=== PATIENT | female | born 1985 ===

== ENCOUNTER 2019-12-23 10:07 | Outpatient (CLI) | payer OTHER ==
--- NOTE | 2019-12-23 10:47 | XRAY Report ---
PROCEDURE: Chest 2 View X-Ray INDICATIONS: Molar ; preoperative evaluation and risk assessment TECHNIQUE: 2 view(s) of the chest. COMPARISON: None. FINDINGS: Surgical changes and devices: None. Lungs and pleura: No pleural effusions or pneumothorax. Lungs are clear. Mediastinum: Mediastinal contours are normal. Heart size is normal. Bones and chest wall: No suspicious bony abnormalities. Soft tissues appear unremarkable. IMPRESSION: No acute cardiopulmonary process demonstrated radiographically. Reviewed by: Chavo Patricio MD on 12/23/2019 10:45 AM PDT Approved by: Chavo Patricio MD on 12/23/2019 10:45 AM PDT Station ID: [id number]
[2019-12-23] MEDS ORDERED: GADOBUTROL 10 MMOL/10 ML VIAL ONE (11:46)
[2019-12-23] MEDS ORDERED: GADOBUTROL 10 MMOL/10 ML VIAL IVP ONE (12:36)
--- NOTE | 2019-12-23 15:34 | MRI Report ---
PROCEDURE: Pelvis W/WO INDICATIONS: MOLAR CONTRAST: IV CONTRAST: Gadavist ml: 8.5 TECHNIQUE: Coronal ultra fast SE, sagittal breath-hold T2 FSE; axial T1 FSE with and without fat saturation thro ugh the pelvis. Optional long- and short-axis uterine nonbreath-hold T2 FSE through the uterus. Sag ittal or axial dynamic ultra fast GE during administration of contrast. Post-contrast axial or coron al ultra fast GE / 2-D spoiled GE with fat saturation from the iliac crests to the symphysis. Option al diffusion weighted imaging and ADC may be performed. COMPARISON: None. FINDINGS: Image quality: Excellent. Uterus: The uterus is mildly enlarged. There is a heterogeneous mass distending the endometrial cavi ty demonstrating predominantly T1 hypointensity and T2 hyperintensity with numerous small internal cy stic spaces. There are a few areas of intrinsic T1-hyperintensity within the mass consistent with blo od product from foci of hemorrhage. Following contrast administration there is heterogeneous hypervas cular enhancement with multiple small internal nonenhancing cystic spaces. There is thickening of the junctional zone in the lower uterine segment. Adnexa: Both ovaries are normal in size. There is a thin-walled nonenhancing cyst within the left ov anam measuring up to 2.9 cm. Urinary system: Bladder wall is normal in thickness. Distal ureters are non distended. Urethra solomon ears normal in morphology. Nodes and vessels: No pelvic or inguinal adenopathy by size criteria. Iliac vessels are normal in s ize. Bowel and peritoneum: No pathologic free pelvic fluid. Inferior colon and small bowel loops are nor mal in caliber. Soft tissues: No inguinal hernias. No findings of pelvic floor incompetence in the absence of provo cation. Bones: Marrow demonstrates normal overall signal. There is mild periarticular edema and enhancement along the right sacroiliac joint compatible with a nonspecific sacroiliitis without evidence of ankyl osis. IMPRESSION: 1. Heterogeneous hypervascular mass with internal cystic spaces demonstrated within the uterine cavit y consistent with a complete hydatidiform mole. 2. Thin-walled simple appearing left ovarian cyst without evidence of ovarian enlargement likely repr esents a physiologic follicular cyst. No definite evidence of thecal lutein cysts. Reviewed by: Phillip Vergara MD on 12/23/2019 3:33 PM PDT Approved by: Phillip Vergara MD on 12/23/2019 3:33 PM PDT Station ID: [id number]
== END 2019-12-23 10:08 | disposition home or self-care (01) ==
LOC: DI 10:07
PROVIDERS: ATTEND Obstetrics & Gynecology
DX: Z01.818 Encounter for other preprocedural examination (principal); N85.9 Noninflammatory disorder of uterus, unspecified; N83.202 Unspecified ovarian cyst, left side
CPT/HCPCS: 71046; 72197; A9585; 36415; 80053

== ENCOUNTER 2019-12-24 06:23 | Day surgery (SDC) | payer OTHER ==
[~2019-12-24 06:23] MED LIST: LACTATED RINGERS 1,000 ML IV ONE
[2019-12-24] MEDS ORDERED: DOXYCYCLINE 100 MG TABLET PO ONE (06:24)
[2019-12-24] MEDS ORDERED: ACETAMINOPHEN 1,000 MG/100 ML 100 ML IV ONE (06:24)
[2019-12-24] MEDS ORDERED: MORPHINE 2 MG/ML CARPUJECT IVP PRN (06:54)
[2019-12-24] MEDS ORDERED: ONDANSETRON 4 MG/2 ML VIAL IVP PRN (06:54)
[2019-12-24] MEDS ORDERED: HYDROmorphone 0.5 MG/0.5 ML SYRINGE IVP PRN (06:54)
[2019-12-24] MEDS ORDERED: ePHEDrine 50 MG/ML VIAL IVP PRN (06:54)
[2019-12-24] MEDS ORDERED: fentaNYL 100 MCG/2 ML VIAL IVP PRN (06:54)
[2019-12-24] MEDS ORDERED: METOCLOPRAMIDE 10 MG/2 ML VIAL IVP PRN (06:54)
[2019-12-24] MEDS ORDERED: NALOXONE 0.4 MG/ML VIAL IVP PRN (06:54)
[2019-12-24] MEDS ORDERED: ATROPINE ABBOJECT 1 MG/10 ML SYRINGE IVP PRN (06:54)
[2019-12-24] MEDS ORDERED: LACTATED RINGERS 1,000 ML IV SCH (07:00)
--- NOTE | 2019-12-24 07:15 | ANESTHESIA ---
Pre-Anesthesia VS, & Labs - Diagnosis molar - Procedure Suction D&C Vital Signs: Temp Pulse Resp BP Pulse Ox 37.3 C 93 18 139/93 H 100 12/24/19 06:41 12/24/19 06:41 12/24/19 06:41 12/24/19 06:41 12/24/19 06:41 Height 5 ft 4.96 in Weight (kg) 81 kg - NPO >8 hours - Is Patient ?: No (molar) - Lab Results Lab results reviewed: Yes Home Medications and Allergies Home Medications: Ambulatory Orders Cetirizine [ZyrTEC] 10 mg PO DAILY 12/22/19 Loratadine [Claritin] 10 mg PO DAILY 12/22/19 Pnv No.95/Ferrous Fum/Folic AC [ Caplet] 1 each PO DAILY 12/22/19 Active Medications Atropine Sulfate () 0.5 mg IVP Q5M PRN PRN Reason: Bradycardia Stop: 12/25/19 06:55 Ephedrine Sulfate () 10 mg IVP Q5M PRN PRN Reason: HYPOTENSION Stop: 12/25/19 06:55 Fentanyl (Fentanyl) 25 - 50 mcg IVP Q5M PRN PRN Reason: BREAKTHROUGH PAIN (2nd Choice) Stop: 12/25/19 06:55 Hydromorphone HCl (Dilaudid Inj Syringe) 0.2 - 0.6 mg IVP Q5M PRN PRN Reason: PAIN (First Choice) Stop: 12/25/19 06:55 Lactated Ringer's (Lr) 1,000 mls @ 100 mls/hr IV .Q10H [place]AS[facility] Stop: 12/24/19 16:59 Metoclopramide HCl (Reglan Inj) 10 mg IVP Q6HR PRN PRN Reason: N/V not relieved by Zofran Morphine Sulfate (Morphine (Carpuject)) 2 - 4 mg IVP Q5M PRN PRN Reason: PAIN (3rd Choice) Stop: 12/25/19 06:55 Naloxone HCl (Narcan) 0.1 mg IVP Q2M PRN PRN Reason: RESP RATE <8 Stop: 12/25/19 06:55 Ondansetron HCl (Zofran Inj) 4 mg IVP ONCE PRN PRN Reason: N/V (First Choice) Stop: 12/25/19 06:55 Cetirizine [ZyrTEC] 10 mg PO DAILY 12/22/19 Loratadine [Claritin] 10 mg PO DAILY 12/22/19 Pnv No.95/Ferrous Fum/Folic AC [ Caplet] 1 each PO DAILY 12/22/19 Allergies/Adverse Reactions: Allergies Allergy/AdvReac Type Severity Reaction Status Date / Time diphenhydramine Allergy Intermediate Unknown Verified 12/24/19 06:50 [From Benadryl] dextromethorphan Allergy Hives Verified 12/24/19 06:50 [From Delsym] Anes History & Medical History - Anesthetic History Anesthesia Complications: reports: No previous complications Family history of Anesthesia Complications: Denies Family history of Malignant Hyperthermia: Denies - Medical History Cardiovascular: reports: None Pulmonary: reports: Asthma Gastrointestinal: reports: None Urinary: reports: None Musculoskeletal: reports: None Endocrine/Autoimmune: reports: None Skin: reports: None - Surgical History General: Cholecystectomy Exam General: Alert, Oriented x3, Cooperative Dental: WNL Mouth Openin Fingerbreadth Neck Mobility: Normal Mallampati classification: I Thyromental Distance: 4-6 cm Respiratory: Lungs clear, Normal breath sounds, No respiratory distress Cardiovascular: Regular rate Neurological: Normal speech Mental/Cognitive Status: Alert/Oriented X3, Normal for patient Cognitive Status: Within normal limits Plan Anesthesia Type: General Consent for Procedure(s) Verified and Reviewed: Yes Code Status: Attempt Resuscitation ASA classification: 2-Mild systemic disease Is this case an emergency?: No
[2019-12-24 07:27] LABS: BASOPHILS # (AUTO) 0.1 10^3/uL (0.0-0.1); BASOPHILS % (AUTO) 0.6 %; EOSINOPHILS # (AUTO) 0.2 10^3/uL (0.0-0.7); EOSINOPHILS % (AUTO) 2.4 %; HGB - HEMOGLOBIN 13.7 g/dL (12.0-16.0); LYMPHOCYTES # (AUTO) 2.5 10^3/uL (1.5-3.5); LYMPHOCYTES % (AUTO) 27.3 %; MEAN CORPUSCULAR HEMOGLOBIN 30.7 pg (27.0-31.0); MEAN CORPUSCULAR HGB CONC 36.1 g/dL (32.0-36.0); MEAN PLATELET VOLUME 8.6 fL (7.9-10.8); MONOCYTES # (AUTO) 0.4 10^3/uL (0.0-1.0); MONOCYTES % (AUTO) 4.7 %; NEUTROPHILS # (AUTO) 5.7 10^3/uL (1.5-6.6); NEUTROPHILS % (AUTO) 63.8 %; PLT - PLATELET COUNT 361 10^3/uL (130-450); RED BLOOD COUNT 4.46 10^6/uL (4.20-5.40); RED CELL DISTRIBUTION WIDTH 13.4 % (12.0-15.0)
[2019-12-24] MEDS ORDERED: LIDOCAINE 1%-EPI 1:100000 20 ML MDV ONE (07:31)
[2019-12-24] MEDS ORDERED: OXYTOCIN 10 UNIT/ML VIAL ONE (07:31)
[2019-12-24] MEDS ORDERED: miSOPROStoL 200 MCG TABLET ONE (07:31)
[2019-12-24] MEDS ORDERED: METHYLERGONOVINE 0.2 MG/ML VIAL ONE (07:32)
[2019-12-24] MEDS ORDERED: LIDOCAINE 1%-EPI 1:100000 30 ML MDV SUBQ ONE (08:07)
[2019-12-24] MEDS ORDERED: miSOPROStoL 200 MCG TABLET PR ONE (08:10)
[2019-12-24] MEDS ORDERED: LACTATED RINGERS 1,000 ML IV ONE ×2 (08:32)
--- NOTE | 2019-12-24 08:49 | OPERATIVE REPORT ---
Operative Report - General Procedure Date: 12/24/19 Planned Procedure: Suction Dilation and Curettage Pre-Op Diagnosis: Complete Molar Procedure Performed: Suction Dilation and Curettage Post Op Diagnosis: Complete Molar - Procedure Note Primary Surgeon: Lyric Fong MD Anesthesia Provider: Garett Anesthesia Technique: General LMA IV Fluids (mL): 850 Estimated Blood Loss (mL): 200 Urine Output (mL): 75 Indications: 34 year old female at 11+0 weeks EGA diagnosed with complete molar . Recommended for suction dilation and curettage. Patient was counseled and consented for the procedure. Findings: Exam under anesthesia: Approximately 10 week sized uterus, anteverted and mobile, and normal contour. No adnexal masses. Cervix closed and long. Operative findings: Uterus sounded to 10.5cm. 10mm curved suction curette used under abdominal ultrasound guidance. Endometrial stripe measured 7mm transabdominally at the end of the procedure. Complications: None - Other Other Information/Narrative: The patient was counseled and consented for the procedure. She was taken to the operating room where general LMA anesthesia was obtained without complication. A surgical time-out was performed. The patient was prepped and draped in the usual sterile fashion in yellow-fin stirrups. The bladder was drained with a straight catheter. A bivalve speculum was placed in the vagina. The cervical os was noted to be closed. The anterior lip of the cervix was grasped with a single toothed tenaculum. A local paracervical block using 1% lidocaine with epinephrine was placed at 2, 4, 8, and 10 o'clock positions of the cervix. The uterus was sounded to 10.5cm. The cervix was dilated to #11 Judith dilator. The suction machine was tested and had suction level to green. The 10mm curved suction curette was inserted and suction curettage was performed under transabdominal ultrasound guidance, with removal of moderate amount of tissue. The suction curette was removed. Sharp curettage was performed with a medium sized curette under ultrasound guidance until good cry was noted throughout the uterine cavity, and the tissue sent for pathology. Final suction curettage was performed with scant tissue removed. Final transabdominal ultrasound measurement of the endometrial stripe was 7mm. The tenaculum was removed from the cervix and the tenaculum sites were hemostatic with pressure. The speculum was removed from the vagina. All instruments were removed from the vagina. The patient tolerated the procedure well. She was awakened from anesthesia without complication and transferred to PACU in stable condition.
[2019-12-24] MEDS ORDERED: ONDANSETRON 4 MG/2 ML VIAL ONE (08:56)
[2019-12-24 09:59] VITALS: BP 127/89
--- NOTE | 2019-12-24 13:26 | ANESTHESIA POST OP EVALUATION ---
Anesthesia Post Eval - Post Anesthesia Eval Vitals: Last Vital Signs Temp 36.4 C L 12/24/19 09:58 Pulse 62 12/24/19 09:58 Resp 16 12/24/19 09:58 BP 127/89 H 12/24/19 09:58 Pulse Ox 99 12/24/19 09:58 CV Function Including HR & BP: positive: Stable Pain Control: positive: Satisfactory Nausea & Vomiting: positive: Negative Mental Status: positive: Baseline Respiratory Status: Airway Patent Hydration Status: Satisfactory
== END 2019-12-24 06:24 | disposition home or self-care (01) ==
LOC: SDS 06:23
PROVIDERS: ATTEND Obstetrics & Gynecology
PROC: 10D07Z6 Extraction of Products of Conception, Vacuum, Via Natural or Artificial Opening (ICD-10-PCS; principal; 2019-12-24 07:30)
DX: O01.9 Hydatidiform mole, unspecified (principal); O01.0 Classical hydatidiform mole; J45.909 Unspecified asthma, uncomplicated
CPT/HCPCS: 85025